=== PATIENT | male | born 1960 | race Caucasian/White ===

== ENCOUNTER 2018-11-21 07:06 | Emergency (ER) | payer BC ==
[2018-11-21 07:16] VITALS: BP 146/86
--- NOTE | 2018-11-21 07:36 | UC ---
Respiratory Complaint HPI - HPI Summary HPI Summary: Mr. Arrieta has had URI symptoms of ST, cough and congestion for 4-5 days but the last three his cough has gotten much worse. He has had no fever but is coughing up brown stuff. - History of Current Complaint Chief Complaint: UCRespiratory Stated Complaint: COUGH SYMP Time Seen by Provider: 11/21/18 07:21 Hx Obtained From: Patient Onset/Duration: Gradual Onset Timing: Intermittent Episodes Severity Initially: Moderate Severity Currently: Moderate Pain Intensity: 0 Character: Cough: Productive Aggravating Factors: Deep Breaths Alleviating Factors: Nothing Associated Signs And Symptoms: Positive: URI, Nasal Congestion - Allergies/Home Medications Allergies/Adverse Reactions: Allergies Allergy/AdvReac Type Severity Reaction Status Date / Time No Known Allergies Allergy Verified 11/21/18 07:16 Home Medications: Home Medications Canagliflozin (NF) [Invokana (NF)] 100 mg PO DAILY 11/21/18 [History Confirmed 11/21/18] Losartan Potassium 100 mg PO DAILY 11/21/18 [History Confirmed 11/21/18] Metformin HCl 1,000 mg PO DAILY 11/21/18 [History Confirmed 11/21/18] Rosuvastatin Calcium 20 mg PO DAILY 11/21/18 [History Confirmed 11/21/18] glipiZIDE [Glipizide ER] 10 mg PO DAILY 11/21/18 [History Confirmed 11/21/18] PMH/Surg Hx/FS Hx/Imm Hx Endocrine History: Diabetes Cardiovascular History: Hypertension, Other - High cholesterol - Surgical History Surgical History: Yes Surgery Procedure, Year, and Place: double hernia 13 yrs ago - Social History Alcohol Use: None Substance Use Type: None Smoking Status (MU): Never Smoked Tobacco Review of Systems All Other Systems Reviewed And Are Negative: Yes Constitutional: Positive: Negative Skin: Positive: Negative Eyes: Positive: Negative ENT: Positive: Sore Throat, Nasal Discharge, Sinus Congestion Respiratory: Positive: Cough Cardiovascular: Positive: Negative Gastrointestinal: Positive: Negative Genitourinary: Positive: Negative Physical Exam - Summary Physical Exam Summary: He was non-toxic in appearance with stable vital signs. He had a paroxysmal, dry cough in the room. Triage Information Reviewed: Yes Appearance: Well-Appearing Vital Signs: Initial Vital Signs Temp 98 F 11/21/18 07:13 Pulse 100 11/21/18 07:13 Resp 18 11/21/18 07:13 BP 146/86 11/21/18 07:13 Pulse Ox 96 11/21/18 07:13 Vital Signs Reviewed: Yes Eye Exam: Normal ENT Exam: Normal Neck exam: Normal Respiratory Exam: Normal Respiratory: Positive: No respiratory distress, No accessory muscle use Cardiovascular Exam: Normal Neurological Exam: Normal Psychological Exam: Normal Skin Exam: Normal Respiratory Course/Dx - Course Course Of Treatment: Mr. Arrieta appears to have a viral URI. I can help him with his symptoms. - Differential Dx/Diagnosis Provider Diagnosis: Bronchitis Discharge - Sign-Out/Discharge Documenting (check all that apply): Patient Departure All imaging exams completed and their final reports reviewed: No Studies - Discharge Plan Condition: Stable Disposition: HOME Patient Education Materials: Acute Bronchitis (ED) Referrals: Keven Ornelas MD [Primary Care Provider] - - Billing Disposition and Condition Condition: STABLE Disposition: Home
== END 2018-11-21 07:45 | disposition home or self-care (01) ==
LOC: UCEAST 07:06
DX: J40 Bronchitis, not specified as acute or chronic (principal); I10 Essential (primary) hypertension; E11.9 Type 2 diabetes mellitus without complications; Z79.84 Long term (current) use of oral hypoglycemic drugs; Z79.899 Other long term (current) drug therapy; E78.00 Pure hypercholesterolemia, unspecified
CPT/HCPCS: 99212; G0463